=== PATIENT | male | born 1945 | race Two or more races ===

== ENCOUNTER 2017-01-26 07:02 | Outpatient (CLI) | payer OTHER | END 2017-01-26 07:10 | disposition home or self-care (01) | LOC: NUCLEAR 07:02 | DX: I50.32 Chronic diastolic (congestive) heart failure (principal); I35.1 Nonrheumatic aortic (valve) insufficiency ==

== ENCOUNTER 2018-06-12 14:07 | Emergency (ER) | payer OTHER ==
[~2018-06-12] VITALS: Ht 175.3 cm; Wt 93.0 kg
[2018-06-12] MEDS ORDERED: LOSARTAN POTASS50 MG (14:50)
[2018-06-12] MEDS ORDERED: LIPITOR40 MG (14:51)
[2018-06-12] MEDS ORDERED: ZETIA10 MG (14:51)
== END 2018-06-12 19:36 | disposition home or self-care (01) ==
LOC: ER 14:07
DX: R20.8 Other disturbances of skin sensation (principal); T78.49XA Other allergy, initial encounter; X58.XXXA Exposure to other specified factors, initial encounter

== ENCOUNTER 2022-02-10 11:03 | Outpatient (CLI) | payer OTHER ==
[~2022-02-10 11:03] MED LIST: LIPITOR40 MG; LOSARTAN POTASS50 MG; ZETIA10 MG
== END 2022-02-10 11:12 | disposition home or self-care (01) ==
LOC: LAB 11:03
PROVIDERS: ATTEND Urology
DX: R31.1 Benign essential microscopic hematuria (principal); N30.00 Acute cystitis without hematuria; R97.20 Elevated prostate specific antigen [PSA]

== ENCOUNTER → 2022-04-19 06:42 | Outpatient (CLI) | payer OTHER | END | disposition home or self-care (01) | LOC: LAB 06:42 | PROVIDERS: ATTEND Urology | DX: C64.1 Malignant neoplasm of right kidney, except renal pelvis (principal); D35.02 Benign neoplasm of left adrenal gland ==

== ENCOUNTER → 2022-04-21 12:34 | Outpatient (CLI) | payer OTHER | END | disposition home or self-care (01) | LOC: LAB 12:34 | PROVIDERS: ATTEND Urology | DX: C64.1 Malignant neoplasm of right kidney, except renal pelvis (principal); D35.02 Benign neoplasm of left adrenal gland ==

== ENCOUNTER → 2022-04-22 11:12 | Outpatient (CLI) | payer OTHER | END | disposition home or self-care (01) | LOC: LAB 11:12 | PROVIDERS: ATTEND Urology | DX: C64.1 Malignant neoplasm of right kidney, except renal pelvis (principal); D35.02 Benign neoplasm of left adrenal gland ==

== ENCOUNTER 2023-05-23 13:50 | Emergency (ER) | payer OTHER ==
[~2023-05-23] VITALS: Ht 175.3 cm; Wt 81.6 kg
[2023-05-23] MEDS ORDERED: 0.9 % SODIUM CHLORIDE 500 ML IV ONE (16:00)
[2023-05-23 16:49] LABS: HEMATOCRIT 38.9 % (39.0-48.0); HEMOGLOBIN 12.7 g/dL (13-16.00); MEAN CORPUSCULAR HEMOGLOBIN 24.1 pg (27.00-32.0); MEAN CORPUSCULAR HGB CONC 32.6 g/dl (32.0-36.0); PLATELET COUNT 200 K/uL (150-450); RED BLOOD COUNT 5.26 M/uL (4.00-6.00); RED CELL DISTRIBUTION WIDTH 16.3 % (11.5-14.5)
[2023-05-23 17:14] LABS: BILIRUBIN TOTAL 0.97 mg/dL (0.3-1.2); CALCIUM 9.2 mg/dL (8.5-10.1); CREATININE SERUM 2.52 mg/dL (0.70-1.30); GFR 24.87; GLOBULINA 3.6 G/DL (2.4-3.5); POTASSIUM 5.05 mEq/L (3.5-5.1); TOTAL PROTEIN 7.6 gm/dL (6.4-8.2)
[2023-05-23 17:20] LABS: PH,URINE 5.5 (5.0-8.0); URINE APPEARANCE Cloudy; URINE BILIRRUBIN Negative (NEGATIVE); URINE BLOOD Large; URINE COLOR Orange; URINE GLUCOSE Negative (NEGATIVE); URINE LEUKOCYTE Trace; URINE NITRATE Negative
[2023-05-23 17:27] LABS: URINE BACTERIA 212.9 uL (0.0-1933); URINE EPITHELIAL CELLS 5.7 uL (0.0-38.8); URINE WBC 34.1 uL (0.0-23.2)
[2023-05-23 17:28] LABS: URINE PROTEIN 100 (NEGATIVE)
[2023-05-23 17:29] LABS: URINE RBC > 10558.9 uL (0.0-20.8)
[2023-05-23 17:51] LABS: INR 1.02; PARTIAL THROMBOPLASTIN TIME 33.3 SECONDS (22.0-34.0); PROTHROMBIN TIME 10.7 SECONDS (9.0-11.5)
== END 2023-05-23 20:33 | disposition home or self-care (01) ==
LOC: ER 13:50
PROVIDERS: General Practice; Nurse Practitioner Family
DX: R53.81 Other malaise (principal); R31.9 Hematuria, unspecified; Z20.822 Contact with and (suspected) exposure to COVID-19
CPT/HCPCS: 36415; 71046; 93005; 96365; 96366; 99283; J7042

== ENCOUNTER 2023-05-25 14:44 | Inpatient (IN) | payer OTHER ==
[~2023-05-25] VITALS: Ht 167.6 cm; Wt 81.6 kg
[2023-05-25] MEDS ORDERED: LENVIMA4 MG PO (15:06)
[2023-05-25] MEDS ORDERED: LENVIMA PO (15:10)
[2023-05-25] MEDS ORDERED: AFINITOR5 MG PO (15:11)
[2023-05-25] MEDS ORDERED: 0.9 % SODIUM CHLORIDE 1,000 ML IV SCH ×2 (16:45→21:15)
[2023-05-25 17:21] LABS: HEMATOCRIT 39.4 % (39.0-48.0); HEMOGLOBIN 13.1 g/dL (13-16.00); MEAN CORPUSCULAR HEMOGLOBIN 24.6 pg (27.00-32.0); MEAN CORPUSCULAR HGB CONC 33.2 g/dl (32.0-36.0); PLATELET COUNT 157 K/uL (150-450); RED BLOOD COUNT 5.33 M/uL (4.00-6.00); RED CELL DISTRIBUTION WIDTH 16.4 % (11.5-14.5)
[2023-05-25 17:49] LABS: ALBUMIN 3.6 gm/dL (3.4-5.0); BILIRUBIN TOTAL 1.47 mg/dL (0.3-1.2); CALCIUM 9.1 mg/dL (8.5-10.1); CREATININE SERUM 2.37 mg/dL (0.70-1.30); GFR 26.77; GLOBULINA 3.5 G/DL (2.4-3.5); POTASSIUM 4.86 mEq/L (3.5-5.1); TOTAL PROTEIN 7.1 gm/dL (6.4-8.2)
[2023-05-25 18:03] LABS: ABG PH 7.424 (7.35-7.45); ABG PO2 87.5 mmHg (80-100); ABG pCO2 30.5 mmHg (35-45); BASE EXCESS -3.6 mmol/l; BICARBONATE 19.5 mmol/l (23-25); SaO2 96.8 %; Tco2 20.5 mmol/l
[2023-05-25 18:04] LABS: allen test SATISFACTORY; o2 21 %; puncture site RADIAL RIGHT
[2023-05-25 18:27] LABS: URINE APPEARANCE Clear; URINE BILIRRUBIN Negative (NEGATIVE); URINE BLOOD Large; URINE COLOR Yellow; URINE GLUCOSE Negative (NEGATIVE); URINE LEUKOCYTE Trace; URINE NITRATE Negative
[2023-05-25 18:31] LABS: URINE BACTERIA 42.8 uL (0.0-1933); URINE EPITHELIAL CELLS 10.5 uL (0.0-38.8); URINE RBC 2199.8 uL (0.0-20.8); URINE WBC 24.1 uL (0.0-23.2)
[2023-05-25 18:33] LABS: URINE PROTEIN 100 (NEGATIVE)
[2023-05-25] MEDS ORDERED: IPRATROPIUM BROMIDE 0.5 MG/2.5 ML AMPUL.NEB IH SCH (21:16)
[2023-05-25] MEDS ORDERED: ACETAMINOPHEN 500 MG GEL..CAP PO PRN (21:30)
[2023-05-25] MEDS ORDERED: ONDANSETRON HCL 4 MG in 0.9 % SODIUM CHLORIDE 50 ML IV PRN (21:30)
[2023-05-25 22:31] LABS: D DIMER 1.24 MG/L; INR 1.03; PROTHROMBIN TIME 10.8 SECONDS (9.0-11.5)
[2023-05-26] MEDS ORDERED: hydrALAZINE HCL 25 MG TABLET PO SCH (09:00)
[2023-05-26] MEDS ORDERED: PATIENTS OWN MEDICATION (MEDICAMENTO EN PISO) PO SCH ×3 (09:00→12:08)
[2023-05-26] MEDS ORDERED: ATORVASTATIN CALCIUM 40 MG TABLET PO SCH (09:00)
[2023-05-26] MEDS ORDERED: HYDROCORTISONE 15 MG PO SCH (09:00)
[2023-05-26] MEDS ORDERED: PANTOPRAZOLE SODIUM 40 MG/VIAL VIAL IV SCH (09:00)
[2023-05-26] MEDS ORDERED: SODIUM POLYSTYRENE SULFONATE 15 G/4 TSP TSP PO SCH (09:00)
[2023-05-26] MEDS ORDERED: AMINOCAPROIC ACID 500 MG TABLET PO SCH (09:00)
[2023-05-26] MEDS ORDERED: HYDROCORTISONE SODIUM SUCC/PF 100 MG VIAL IV STA (12:38)
[2023-05-26] MEDS ORDERED: HYDROCORTISONE SODIUM SUCC/PF 100 MG VIAL IV SCH (17:00)
[2023-05-26] MEDS ORDERED: HYDROCORTISONE 10 MG PO SCH (17:00)
[2023-05-27 05:08] LABS: HEMATOCRIT 40.7 % (39.0-48.0); HEMOGLOBIN 13.4 g/dL (13-16.00); MEAN CELL VOLUME 74.1 fL (80.0-100.00); MEAN CORPUSCULAR HEMOGLOBIN 24.4 pg (27.00-32.0); RED CELL DISTRIBUTION WIDTH 16.3 % (11.5-14.5)
[2023-05-27 05:09] LABS: PLATELET COUNT 117 K/uL (150-450)
[2023-05-27 05:14] LABS: ALBUMIN 3.4 gm/dL (3.4-5.0); BILIRUBIN TOTAL 0.87 mg/dL (0.3-1.2); CALCIUM 8.7 mg/dL (8.5-10.1); CREATININE SERUM 2.18 mg/dL (0.70-1.30); GFR 29.48; GLOBULINA 3.1 G/DL (2.4-3.5); POTASSIUM 5.37 mEq/L (3.5-5.1); TOTAL PROTEIN 6.5 gm/dL (6.4-8.2)
[2023-05-27 05:34] LABS: TSH 1.71 uIU/mL (0.358-3.74)
[2023-05-27] MEDS ORDERED: HYDROCORTISONE SODIUM SUCC/PF 100 MG VIAL IV SCH (09:00)
[2023-05-27] MEDS ORDERED: METOPROLOL TARTRATE 25 MG TABLET PO SCH (22:17)
[2023-05-28 16:12] LABS: ALBUMIN 2.8 gm/dL (3.4-5.0); CALCIUM 8.7 mg/dL (8.5-10.1); CREATININE SERUM 2.97 mg/dL (0.70-1.30); GFR 20.63; POTASSIUM 4.52 mEq/L (3.5-5.1)
[2023-05-28 17:08] LABS: PHOSPHOROUS 1.2 mg/dL (2.5-4.9)
[2023-05-29 07:47] LABS: ALBUMIN 2.9 gm/dL (3.4-5.0); BILIRUBIN TOTAL 0.52 mg/dL (0.3-1.2); CALCIUM 8.8 mg/dL (8.5-10.1); CREATININE SERUM 2.72 mg/dL (0.70-1.30); GFR 22.83; GLOBULINA 2.9 G/DL (2.4-3.5); POTASSIUM 4.27 mEq/L (3.5-5.1); TOTAL PROTEIN 5.8 gm/dL (6.4-8.2)
[2023-05-30 07:04] LABS: HEMATOCRIT 32.2 % (39.0-48.0); HEMOGLOBIN 10.7 g/dL (13-16.00); MEAN CELL VOLUME 73.2 fL (80.0-100.00); MEAN CORPUSCULAR HEMOGLOBIN 24.3 pg (27.00-32.0); MEAN CORPUSCULAR HGB CONC 33.2 g/dl (32.0-36.0)
[2023-05-30 07:15] LABS: PLATELET COUNT 98 K/uL (150-450)
[2023-05-30] MEDS ORDERED: NAPH,MB-DB/K PH,MBDB 1 PKT PACKET PO SCH (17:00)
[2023-05-31 06:35] LABS: HEMATOCRIT 32.8 % (39.0-48.0); HEMOGLOBIN 10.7 g/dL (13-16.00); MEAN CELL VOLUME 74.5 fL (80.0-100.00); MEAN CORPUSCULAR HEMOGLOBIN 24.4 pg (27.00-32.0); MEAN CORPUSCULAR HGB CONC 32.7 g/dl (32.0-36.0)
[2023-05-31 06:37] LABS: PLATELET COUNT 100 K/uL (150-450)
[2023-05-31 06:55] LABS: ALBUMIN 2.8 gm/dL (3.4-5.0); BILIRUBIN TOTAL 0.4 mg/dL (0.3-1.2); CALCIUM 8.4 mg/dL (8.5-10.1); CREATININE SERUM 2.13 mg/dL (0.70-1.30); GFR 30.12; GLOBULINA 3.1 G/DL (2.4-3.5); POTASSIUM 4.5 mEq/L (3.5-5.1); TOTAL PROTEIN 5.9 gm/dL (6.4-8.2)
[2023-05-31] MEDS ORDERED: VITAMIN B COMPLEX 1 EACH PO SCH (09:00)
[2023-05-31] MEDS ORDERED: PATIENTS OWN MEDICATION (MEDICAMENTO EN PISO) PO SCH (17:00)
[2023-06-01] MEDS ORDERED: PATIENTS OWN MEDICATION (MEDICAMENTO EN PISO) PO SCH (09:00)
[2023-06-01] MEDS ORDERED: FLUDROCORTISONE ACETATE 0.1 MG TABLET PO SCH (09:00)
== END 2023-06-01 18:52 | disposition home or self-care (01) | DRG 683 ==
LOC: ER 14:44 → SEC-K 21:50 → EDBD 21:50 → MEDJ 21:50
PROVIDERS: General Practice; Internal Medicine; Internal Medicine Endocrinology, Diabetes & Metabolism; Internal Medicine Nephrology; ADMIT Internal Medicine; ATTEND Internal Medicine
PROC: B24BZZZ Ultrasonography of Heart with Aorta (ICD-10-PCS; principal; 2023-05-25)
PROC: 4A12X4Z Monitoring of Cardiac Electrical Activity, External Approach (ICD-10-PCS; 2023-05-26)
DX: N17.9 Acute kidney failure, unspecified (principal); C64.1 Malignant neoplasm of right kidney, except renal pelvis; C78.89 Secondary malignant neoplasm of other digestive organs; E87.1 Hypo-osmolality and hyponatremia; E27.49 Other adrenocortical insufficiency; C79.72 Secondary malignant neoplasm of left adrenal gland; D63.0 Anemia in neoplastic disease; R31.0 Gross hematuria; E86.0 Dehydration; I25.10 Atherosclerotic heart disease of native coronary artery without angina pectoris; I35.1 Nonrheumatic aortic (valve) insufficiency; I13.10 Hypertensive heart and chronic kidney disease without heart failure, with stage 1 through stage 4 chronic kidney disease, or unspecified chronic kidney disease; N18.30 Chronic kidney disease, stage 3 unspecified; Z95.0 Presence of cardiac pacemaker

== ENCOUNTER 2023-10-21 12:14 | Inpatient (IN) | payer OTHER ==
[~2023-10-21] VITALS: Ht 175.3 cm; Wt 80.7 kg
[~2023-10-21 12:14] MED LIST changes: +AFINITOR5 MG PO; +LENVIMA PO; +LENVIMA4 MG PO
[2023-10-21] MEDS ORDERED: FARXIGA10 MG PO (13:23)
[2023-10-21] MEDS ORDERED: ECOTRIN81 MG (13:24)
[2023-10-21] MEDS ORDERED: IRON236 MG (13:24)
[2023-10-21] MEDS ORDERED: VALSARTAN80 MG PO (13:25)
[2023-10-21] MEDS ORDERED: SULFAMETHOXAZO1 EACH (13:25)
[2023-10-21] MEDS ORDERED: FAMOTIDINE/PF 20 MG/2 ML VIAL IV ONE (15:00)
[2023-10-21] MEDS ORDERED: 0.9 % SODIUM CHLORIDE 500 ML IV ONE ×2 (15:00→17:00)
[2023-10-21] MEDS ORDERED: ONDANSETRON HCL 2 MG/ML VIAL IV ONE (15:00)
[2023-10-21] MEDS ORDERED: FAMOTIDINE/PF 20 MG/2 ML VIAL ONE (15:14)
[2023-10-21] MEDS ORDERED: ONDANSETRON HCL 2 MG/ML VIAL ONE (15:14)
[2023-10-21] MEDS ORDERED: METHYLPREDNISOLONE SOD SUCC 125 MG VIAL ONE (15:14)
[2023-10-21] MEDS ORDERED: METHYLPREDNISOLONE SOD SUCC 125 MG VIAL IV ONE (15:15)
[2023-10-21 15:46] LABS: URINE BACTERIA 151.1 uL (0.0-1933); URINE CAST 4.88 uL (0.0-1.40); URINE EPITHELIAL CELLS 10.9 uL (0.0-38.8); URINE RBC 29.3 uL (0.0-20.8); URINE WBC 152.7 uL (0.0-23.2)
[2023-10-21 15:53] LABS: URINE APPEARANCE Turbid; URINE BILIRRUBIN Negative (NEGATIVE); URINE BLOOD Small; URINE COLOR Dark Yellow; URINE KETONE Trace (NEGATIVE); URINE LEUKOCYTE Small; URINE NITRATE Negative
[2023-10-21 16:06] LABS: URINE CRYSTALS FEW /HPF; URINE GLUCOSE >=1000 MG/DL (NEGATIVE); URINE MUCUS SCANT; URINE PROTEIN 300 (NEGATIVE)
[2023-10-21 16:07] LABS: URINE YEAST FEW /hpf
[2023-10-21 16:18] LABS: MEAN CELL VOLUME 84.4 fL (80.0-100.00); MEAN CORPUSCULAR HEMOGLOBIN 28.2 pg (27.00-32.0); MEAN CORPUSCULAR HGB CONC 33.4 g/dl (32.0-36.0); RED BLOOD COUNT 6.51 M/uL (4.00-6.00); RED CELL DISTRIBUTION WIDTH 15.3 % (11.5-14.5)
[2023-10-21 16:19] LABS: HEMATOCRIT 54.9 % (39.0-48.0); HEMOGLOBIN 18.4 g/dL (13-16.00); PLATELET COUNT 50 K/uL (150-450)
[2023-10-21] MEDS ORDERED: INSULIN LISPRO 1,000 UNIT/10 ML UNITS SUBCUTANEO PRN (19:00)
[2023-10-21] MEDS ORDERED: ACETAMINOPHEN 500 MG GEL..CAP PO PRN (19:00)
[2023-10-21] MEDS ORDERED: 0.9 % SODIUM CHLORIDE 1,000 ML IV SCH (19:00)
[2023-10-21] MEDS ORDERED: DEXTROSE 50 % IN WATER 0.5 G/ML DISP.SYRIN IV PRN (19:00)
[2023-10-21] MEDS ORDERED: ONDANSETRON HCL 4 MG in 0.9 % SODIUM CHLORIDE 50 ML IV PRN (19:00)
[2023-10-21] MEDS ORDERED: LACTOBACILLUS ACIDOPHILUS 1 CAP CAP PO SCH (19:01)
[2023-10-21] MEDS ORDERED: PREDNISONE 10 MG TABLET PO SCH (19:07)
[2023-10-21] MEDS ORDERED: MORPHINE SULFATE 2 MG/ML CARTRIDGE IV PRN (19:15)
[2023-10-21] MEDS ORDERED: hydrALAZINE HCL 20 MG VIAL IV PRN (19:15)
[2023-10-22 07:27] LABS: PH,URINE 5.5 (5.0-8.0); URINE APPEARANCE Clear; URINE BILIRRUBIN Negative (NEGATIVE); URINE BLOOD Small; URINE COLOR Yellow; URINE KETONE Trace (NEGATIVE); URINE LEUKOCYTE Trace; URINE NITRATE Negative; URINE UROBILINOGEN 0.2 E.U./dl
[2023-10-22 07:28] LABS: URINE BACTERIA 12.5 uL (0.0-1933); URINE EPITHELIAL CELLS 2.1 uL (0.0-38.8); URINE WBC 22.5 uL (0.0-23.2)
[2023-10-22 07:38] LABS: URINE CAST 0.45 uL (0.0-1.40); URINE GLUCOSE >=1000 MG/DL (NEGATIVE); URINE PROTEIN 100 (NEGATIVE); URINE RBC 0.7 uL (0.0-20.8)
[2023-10-22 07:59] LABS: INR 1.04; PROTHROMBIN TIME 10.9 SECONDS (9.0-11.5)
[2023-10-22] MEDS ORDERED: PREDNISONE 10 MG TABLET PO SCH (09:00)
[2023-10-22] MEDS ORDERED: VALSARTAN 80 MG PO SCH (09:00)
[2023-10-22] MEDS ORDERED: PANTOPRAZOLE SODIUM 40 MG in 0.9 % SODIUM CHLORIDE 8 ML IV PUSH SCH (09:00)
[2023-10-22] MEDS ORDERED: CEFTRIAXONE SODIUM 1,000 MG VIAL IV SCH (09:00)
[2023-10-22] MEDS ORDERED: FARXIGA 10 MG PO SCH (09:00)
[2023-10-22 09:33] LABS: HEMATOCRIT 48.2 % (39.0-48.0); HEMOGLOBIN 16.2 g/dL (13-16.00); MEAN CELL VOLUME 83.9 fL (80.0-100.00); MEAN CORPUSCULAR HEMOGLOBIN 28.2 pg (27.00-32.0); MEAN CORPUSCULAR HGB CONC 33.6 g/dl (32.0-36.0); RED BLOOD COUNT 5.74 M/uL (4.00-6.00); RED CELL DISTRIBUTION WIDTH 14.8 % (11.5-14.5)
[2023-10-22 09:50] LABS: ALBUMIN 3.5 gm/dL (3.4-5.0); CHOL HDL RATIO 3.4 (0-5.0); GLOBULINA 3.2 G/DL (2.4-3.5); TOTAL PROTEIN 6.7 gm/dL (6.4-8.2)
[2023-10-22 09:51] LABS: BILIRUBIN TOTAL 0.44 mg/dL (0.3-1.2); BILIRUBIN,CONJUGATED 0.12 mg/dL (0.0-0.2); BILIRUBIN,UNCONJUGATED 0.32 mg/dL (0.0-0.6)
[2023-10-22 09:55] LABS: GFR 13.61
[2023-10-22 09:56] LABS: CREATININE SERUM 4.24 mg/dL (0.70-1.30); POTASSIUM 7.99 mEq/L (3.5-5.1)
[2023-10-22 09:59] LABS: GFR 13.61; TOTAL PROTEIN 6.7 gm/dL (6.4-8.2)
[2023-10-22 10:00] LABS: ALBUMIN 3.5 gm/dL (3.4-5.0); BILIRUBIN TOTAL 0.44 mg/dL (0.3-1.2); CREATININE SERUM 4.24 mg/dL (0.70-1.30); GLOBULINA 3.2 G/DL (2.4-3.5); POTASSIUM 7.99 mEq/L (3.5-5.1)
[2023-10-22 10:12] LABS: PLATELET COUNT 28 K/uL (150-450)
[2023-10-22] MEDS ORDERED: CALCIUM GLUCONATE 100 MG/ML VIAL IV NR (10:15)
[2023-10-22 12:47] LABS: ERYTHROCYTE SEDIMENTATION RATE 14 mm/hr
[2023-10-22] MEDS ORDERED: SODIUM BICARBONATE 1 MEQ/ML DISP.SYRIN 50ML IV SCH (13:00)
[2023-10-22] MEDS ORDERED: SODIUM POLYSTYRENE SULFONATE 30G/8 TSP PO SCH ×2 (13:00)
[2023-10-22] MEDS ORDERED: DEXTROSE IV SCH (13:15)
[2023-10-22] MEDS ORDERED: SODIUM BICARBONATE IV SCH (13:15)
[2023-10-22] MEDS ORDERED: SOD CHLORD IV SCH (13:15)
[2023-10-23] MEDS ORDERED: HYDROCORTISONE SODIUM SUCC/PF 100 MG VIAL IV SCH
[2023-10-23 08:00] LABS: HEMATOCRIT 44.8 % (39.0-48.0); HEMOGLOBIN 15.7 g/dL (13-16.00); MEAN CELL VOLUME 83.7 fL (80.0-100.00); MEAN CORPUSCULAR HEMOGLOBIN 29.4 pg (27.00-32.0); MEAN CORPUSCULAR HGB CONC 35.1 g/dl (32.0-36.0); RED BLOOD COUNT 5.35 M/uL (4.00-6.00); RED CELL DISTRIBUTION WIDTH 15.4 % (11.5-14.5)
[2023-10-23 08:06] LABS: ALBUMIN 3.5 gm/dL (3.4-5.0); BILIRUBIN TOTAL 0.68 mg/dL (0.3-1.2); CALCIUM 9.3 mg/dL (8.5-10.1); CREATININE SERUM 3.31 mg/dL (0.70-1.30); GFR 18.11; GLOBULINA 2.9 G/DL (2.4-3.5); POTASSIUM 5.9 mEq/L (3.5-5.1); TOTAL PROTEIN 6.4 gm/dL (6.4-8.2)
[2023-10-23 09:57] LABS: PLATELET COUNT 40 K/uL (150-450)
[2023-10-23] MEDS ORDERED: SODIUM POLYSTYRENE SULFONATE 30G/8 TSP PO SCH ×2 (12:00→17:00)
[2023-10-23] MEDS ORDERED: HYDROCORTISONE SODIUM SUCC/PF 50 MG/ML ML IV SCH (12:00)
[2023-10-23] MEDS ORDERED: SOD CHLORD IV SCH (18:30)
[2023-10-23] MEDS ORDERED: SODIUM BICARBONATE IV SCH (18:30)
[2023-10-23] MEDS ORDERED: DEXTROSE IV SCH (18:30)
[2023-10-24] MEDS ORDERED: SODIUM BICARBONATE 50MEQ/50ML VIAL IV ONE (05:35)
[2023-10-24 06:35] LABS: HEMATOCRIT 48.7 % (39.0-48.0); HEMOGLOBIN 16.5 g/dL (13-16.00); MEAN CELL VOLUME 83.3 fL (80.0-100.00); MEAN CORPUSCULAR HEMOGLOBIN 28.2 pg (27.00-32.0); MEAN CORPUSCULAR HGB CONC 33.9 g/dl (32.0-36.0); RED BLOOD COUNT 5.85 M/uL (4.00-6.00); RED CELL DISTRIBUTION WIDTH 15.4 % (11.5-14.5)
[2023-10-24 06:49] LABS: PLATELET COUNT 36 K/uL (150-450)
[2023-10-24 06:58] LABS: CALCIUM 8.8 mg/dL (8.5-10.1); CREATININE SERUM 2.78 mg/dL (0.70-1.30); GFR 22.15; POTASSIUM 4.06 mEq/L (3.5-5.1)
[2023-10-24] MEDS ORDERED: PANTOPRAZOLE SODIUM 40 MG/VIAL VIAL ONE (07:47)
[2023-10-24] MEDS ORDERED: SODIUM CHLORIDE 0.45 % 1,000 ML IV SCH (09:15)
[2023-10-24] MEDS ORDERED: AMLODIPINE BESYLATE 5 MG TABLET PO SCH (10:31)
[2023-10-25 06:46] LABS: HEMOGLOBIN 13.9 g/dL (13-16.00); MEAN CELL VOLUME 83.3 fL (80.0-100.00); MEAN CORPUSCULAR HEMOGLOBIN 28.2 pg (27.00-32.0); MEAN CORPUSCULAR HGB CONC 33.9 g/dl (32.0-36.0); RED BLOOD COUNT 4.92 M/uL (4.00-6.00); RED CELL DISTRIBUTION WIDTH 14.8 % (11.5-14.5)
[2023-10-25 07:53] LABS: PLATELET COUNT 27 K/uL (150-450)
[2023-10-25] MEDS ORDERED: PANTOPRAZOLE SODIUM 40 MG/VIAL VIAL ONE (08:02)
[2023-10-25] MEDS ORDERED: HYDROCORTISONE SODIUM SUCC/PF 50 MG/ML ML IV SCH (17:00)
== END 2023-10-25 18:39 | disposition home or self-care (01) | DRG 813 ==
LOC: ER 12:15 → MEDI 20:27
PROVIDERS: Emergency Medicine; General Practice; Nurse Practitioner Family; ADMIT Internal Medicine; ATTEND Internal Medicine
PROC: 30233R1 Transfusion of Nonautologous Platelets into Peripheral Vein, Percutaneous Approach (ICD-10-PCS; principal; 2023-10-25)
DX: D69.6 Thrombocytopenia, unspecified (principal); N17.9 Acute kidney failure, unspecified; E87.20 Acidosis, unspecified; E27.40 Unspecified adrenocortical insufficiency; N39.0 Urinary tract infection, site not specified; I95.9 Hypotension, unspecified; E86.0 Dehydration; E87.5 Hyperkalemia; E11.65 Type 2 diabetes mellitus with hyperglycemia; Z79.4 Long term (current) use of insulin; I25.10 Atherosclerotic heart disease of native coronary artery without angina pectoris; I10 Essential (primary) hypertension

== ENCOUNTER 2023-10-29 08:19 | Inpatient (IN) | payer OTHER ==
[~2023-10-29] VITALS: Ht 175.3 cm; Wt 816.5 kg
[~2023-10-29 08:19] MED LIST changes: +ECOTRIN81 MG; +FARXIGA10 MG PO; +IRON236 MG; +SULFAMETHOXAZO1 EACH; +VALSARTAN80 MG PO
[2023-10-29 09:18] LABS: ABG PH 7.477 (7.35-7.45); ABG pCO2 29.9 mmHg (35-45); BASE EXCESS -0.7 mmol/l; BICARBONATE 21.6 mmol/l (23-25); SaO2 90.4 %; Tco2 22.5 mmol/l
[2023-10-29 09:59] LABS: HEMOGLOBIN 13.8 g/dL (13-16.00); MEAN CELL VOLUME 83.9 fL (80.0-100.00); MEAN CORPUSCULAR HEMOGLOBIN 28.2 pg (27.00-32.0); MEAN CORPUSCULAR HGB CONC 33.6 g/dl (32.0-36.0); RED BLOOD COUNT 4.89 M/uL (4.00-6.00); RED CELL DISTRIBUTION WIDTH 14.9 % (11.5-14.5)
[2023-10-29 10:15] LABS: ALBUMIN 3.5 gm/dL (3.4-5.0); BILIRUBIN TOTAL 2.74 mg/dL (0.3-1.2); CALCIUM 8.5 mg/dL (8.5-10.1); CREATININE SERUM 2.22 mg/dL (0.70-1.30); GFR 28.72; GLOBULINA 3.2 G/DL (2.4-3.5); POTASSIUM 3.67 mEq/L (3.5-5.1); TOTAL PROTEIN 6.7 gm/dL (6.4-8.2)
[2023-10-29 10:16] LABS: D DIMER 3.24 MG/L; INR 1.03; PARTIAL THROMBOPLASTIN TIME 25.7 SECONDS (22.0-34.0); PROTHROMBIN TIME 11.2 SECONDS (9.0-11.5)
[2023-10-29] MEDS ORDERED: NITROGLYCERIN IN 5 % DEXTROSE 50 MG/250 ML BOTTLE IV ONE (10:48)
[2023-10-29 10:52] LABS: ABG PO2 54.8 mmHg (80-100); allen test SATISFACTORY; o2 21 %; puncture site RADIAL LEFT
[2023-10-29] MEDS ORDERED: FUROsemide 20 MG/2 ML VIAL IV ONE (11:00)
[2023-10-29] MEDS ORDERED: NITROGLYCERIN IN 5 % DEXTROSE 250 ML IV SCH (11:00)
[2023-10-29] MEDS ORDERED: FUROsemide 40 MG/4 ML VIAL ONE (11:02)
[2023-10-29] MEDS ORDERED: FUROsemide 40 MG/4 ML VIAL IV ONE (11:15)
[2023-10-29 12:38] LABS: PLATELET COUNT 42 K/uL (150-450)
[2023-10-29 12:49] LABS: PH,URINE 6.5 (5.0-8.0); URINE APPEARANCE Clear; URINE BILIRRUBIN Negative (NEGATIVE); URINE BLOOD Trace; URINE COLOR Yellow; URINE GLUCOSE Negative (NEGATIVE); URINE KETONE Negative (NEGATIVE); URINE LEUKOCYTE Negative; URINE NITRATE Negative; URINE PROTEIN 30 (NEGATIVE); URINE UROBILINOGEN 0.2 E.U./dl
[2023-10-29 12:53] LABS: URINE BACTERIA 7.5 uL (0.0-1933); URINE WBC 3.4 uL (0.0-23.2)
[2023-10-29 12:57] LABS: PLT IN CITRATE 54 K/uL (150-450)
[2023-10-29 13:01] LABS: URINE EPITHELIAL CELLS 0.3 uL (0.0-38.8); URINE RBC 1.2 uL (0.0-20.8)
[2023-10-29] MEDS ORDERED: IPRATROPIUM BROMIDE 0.5 MG/2.5 ML AMPUL.NEB IH SCH (18:04)
[2023-10-29] MEDS ORDERED: ACETAMINOPHEN 500 MG GEL..CAP PO PRN (18:15)
[2023-10-29] MEDS ORDERED: INSULIN LISPRO 1,000 UNIT/10 ML UNITS SUBCUTANEO PRN (18:30)
[2023-10-29] MEDS ORDERED: DEXTROSE 50 % IN WATER 0.5 G/ML DISP.SYRIN IV PRN (18:30)
[2023-10-29] MEDS ORDERED: IPRATROPIUM BROMIDE 0.5 MG/2.5 ML AMPUL.NEB IH ONE ×2 (18:49→23:55)
[2023-10-30] MEDS ORDERED: FUROsemide 20 MG/2 ML VIAL IV SCH (01:00)
[2023-10-30 04:45] LABS: MAGNESIUM 1.4 mg/dL (1.8-2.4); PHOSPHOROUS 1.8 mg/dL (2.5-4.9)
[2023-10-30] MEDS ORDERED: FAMOTIDINE/PF 20 MG in 0.9 % SODIUM CHLORIDE 8 ML IV PUSH SCH (09:00)
[2023-10-30] MEDS ORDERED: PANTOPRAZOLE SODIUM 40 MG/VIAL VIAL IV SCH (09:00)
[2023-10-30] MEDS ORDERED: ATORVASTATIN CALCIUM 40 MG TABLET PO SCH (09:00)
[2023-10-30] MEDS ORDERED: POTASSIUM PHOS,M-BASIC-D-BASIC 3 MM/ML VIAL IV NR (09:23)
[2023-10-30] MEDS ORDERED: HYDROCORTISONE SODIUM SUCC/PF 100 MG VIAL IV STA (11:52)
[2023-10-30] MEDS ORDERED: HYDROCORTISONE SODIUM SUCC/PF 50 MG/ML ML IV SCH ×2 (12:00→18:00)
[2023-10-30 13:53] LABS: TSH 1.14 uIU/mL (0.358-3.74)
[2023-10-30] MEDS ORDERED: NITROGLYCERIN IN 5 % DEXTROSE 250 ML IV SCH (16:30)
[2023-10-31 06:35] LABS: HEMATOCRIT 37.2 % (39.0-48.0); HEMOGLOBIN 12.7 g/dL (13-16.00); MEAN CELL VOLUME 82.7 fL (80.0-100.00); MEAN CORPUSCULAR HEMOGLOBIN 28.1 pg (27.00-32.0); RED BLOOD COUNT 4.51 M/uL (4.00-6.00); RED CELL DISTRIBUTION WIDTH 14.9 % (11.5-14.5)
[2023-10-31 07:13] LABS: PLATELET COUNT 58 K/uL (150-450)
[2023-10-31] MEDS ORDERED: FUROsemide 20 MG/2 ML VIAL IV SCH (21:00)
[2023-11-01] MEDS ORDERED: HYDROCORTISONE SODIUM SUCC/PF 50 MG/ML ML IV SCH (01:00)
[2023-11-01 12:35] LABS: BILIRUBIN TOTAL 0.97 mg/dL (0.3-1.2); CALCIUM 8.6 mg/dL (8.5-10.1); CREATININE SERUM 2.63 mg/dL (0.70-1.30); GFR 23.62; GLOBULINA 2.9 G/DL (2.4-3.5); PHOSPHOROUS 2.4 mg/dL (2.5-4.9); POTASSIUM 3.23 mEq/L (3.5-5.1); TOTAL PROTEIN 5.9 gm/dL (6.4-8.2)
[2023-11-01 12:37] LABS: MAGNESIUM 1.4 mg/dL (1.8-2.4)
== END 2023-11-01 13:00 | disposition home or self-care (01) | DRG 281 ==
LOC: ER 08:19 → ICU 18:32 → ICU-2 18:32 → ICU 23:03
PROVIDERS: Emergency Medicine; General Practice; Internal Medicine Hematology & Oncology; ADMIT Internal Medicine; ATTEND Internal Medicine
PROC: 4A12X4Z Monitoring of Cardiac Electrical Activity, External Approach (ICD-10-PCS; principal; 2023-10-29)
PROC: B246ZZZ Ultrasonography of Right and Left Heart (ICD-10-PCS; 2023-10-29)
PROC: 3E0F7GC Introduction of Other Therapeutic Substance into Respiratory Tract, Via Natural or Artificial Opening (ICD-10-PCS; 2023-10-29)
DX: I21.A1 Myocardial infarction type 2 (principal); C64.1 Malignant neoplasm of right kidney, except renal pelvis; I13.0 Hypertensive heart and chronic kidney disease with heart failure and stage 1 through stage 4 chronic kidney disease, or unspecified chronic kidney disease; N17.9 Acute kidney failure, unspecified; I50.1 Left ventricular failure, unspecified; C79.72 Secondary malignant neoplasm of left adrenal gland; C78.89 Secondary malignant neoplasm of other digestive organs; E27.49 Other adrenocortical insufficiency; D69.6 Thrombocytopenia, unspecified; E11.22 Type 2 diabetes mellitus with diabetic chronic kidney disease; N18.32 Chronic kidney disease, stage 3b; Z95.0 Presence of cardiac pacemaker; R06.02 Shortness of breath

== ENCOUNTER 2023-11-24 13:39 | Inpatient (IN) | payer OTHER ==
[~2023-11-24] VITALS: Ht 172.7 cm; Wt 68.0 kg
[2023-11-24] MEDS ORDERED: HYDROCORTISONE20 MG PO (13:54)
[2023-11-24] MEDS ORDERED: FAMOTIDINE/PF 20 MG/2 ML VIAL IV PUSH STA (14:44)
[2023-11-24] MEDS ORDERED: ONDANSETRON HCL 2 MG/ML VIAL IV STA ×2 (14:44→22:29)
[2023-11-24] MEDS ORDERED: 0.9 % SODIUM CHLORIDE 1,000 ML IV SCH ×2 (14:45→23:15)
[2023-11-24] MEDS ORDERED: MORPHINE SULFATE 4 MG/ML VIAL IV STA (15:01)
[2023-11-24] MEDS ORDERED: FAMOTIDINE/PF 20 MG/2 ML VIAL ONE (15:31)
[2023-11-24] MEDS ORDERED: ONDANSETRON HCL 2 MG/ML VIAL ONE ×2 (15:31→22:28)
[2023-11-24 15:39] LABS: MEAN CORPUSCULAR HEMOGLOBIN 29.2 pg (27.00-32.0); MEAN CORPUSCULAR HGB CONC 33.9 g/dl (32.0-36.0); PLATELET COUNT 139 K/uL (150-450); RED CELL DISTRIBUTION WIDTH 17.6 % (11.5-14.5)
[2023-11-24 15:41] LABS: HEMATOCRIT 55.9 % (39.0-48.0)
[2023-11-24 15:56] LABS: ALBUMIN 4.2 gm/dL (3.4-5.0); BILIRUBIN TOTAL 1.54 mg/dL (0.3-1.2); CALCIUM 10.6 mg/dL (8.5-10.1); CREATININE SERUM 3.14 mg/dL (0.70-1.30); GFR 19.25; GLOBULINA 4.5 G/DL (2.4-3.5); POTASSIUM 5.42 mEq/L (3.5-5.1); TOTAL PROTEIN 8.7 gm/dL (6.4-8.2)
[2023-11-24 16:11] LABS: ABG PO2 73.5 mmHg (80-100); ABG pCO2 24.8 mmHg (35-45); BASE EXCESS -7.2 mmol/l; BICARBONATE 15.4 mmol/l (23-25); SaO2 94.4 %; Tco2 16.1 mmol/l
[2023-11-24 16:43] LABS: allen test SATISFACTORY; o2 21 %; puncture site RADIAL RIGHT
[2023-11-24] MEDS ORDERED: METHYLPREDNISOLONE SOD SUCC 125 MG VIAL ONE (19:04)
[2023-11-24] MEDS ORDERED: PROMETHAZINE HCL 25 MG/ML AMPUL IV ONE (21:45)
[2023-11-24] MEDS ORDERED: HYDROCORTISONE 15 MG PO SCH (23:05)
[2023-11-24] MEDS ORDERED: SODIUM POLYSTYRENE SULFONATE 15 G/4 TSP TSP PO SCH (23:06)
[2023-11-24] MEDS ORDERED: PANTOPRAZOLE SODIUM 40 MG/VIAL VIAL IV SCH (23:13)
[2023-11-24] MEDS ORDERED: ACETAMINOPHEN 500 MG GEL..CAP PO PRN (23:15)
[2023-11-24] MEDS ORDERED: ONDANSETRON HCL 4 MG in 0.9 % SODIUM CHLORIDE 50 ML IV PRN (23:15)
[2023-11-24] MEDS ORDERED: TAMSULOSIN HCL 0.4 MG CAP PO ONE (23:54)
[2023-11-25] MEDS ORDERED: PIPERACILLIN/TAZOBACTAM SODIUM 2.25 GM in DEXTROSE 5 % IN WATER 50 ML IV SCH
[2023-11-25] MEDS ORDERED: SODIUM POLYSTYRENE SULFONATE 15 G/4 TSP TSP ONE (00:44)
[2023-11-25 01:02] LABS: INR 1.13; PARTIAL THROMBOPLASTIN TIME 33.1 SECONDS (22.0-34.0); PROTHROMBIN TIME 12.2 SECONDS (9.0-11.5)
[2023-11-25 01:07] LABS: C-REACTIVE PROTEIN 9.01 MG/DL (0.00-0.29)
[2023-11-25 01:38] VITALS: BP 91/65; O2SAT 96
[2023-11-25 03:12] VITALS: BP 105/72; O2SAT 97
[2023-11-25 04:32] VITALS: BP 94/65; O2SAT 93
[2023-11-25 07:00] VITALS: BP 124/78; O2SAT 95
[2023-11-25 07:34] LABS: URINE APPEARANCE Cloudy; URINE BILIRRUBIN Negative (NEGATIVE); URINE BLOOD Small; URINE COLOR Yellow; URINE GLUCOSE Negative (NEGATIVE); URINE KETONE Trace (NEGATIVE); URINE LEUKOCYTE Small; URINE NITRATE Negative; URINE UROBILINOGEN 0.2 E.U./dl
[2023-11-25 07:38] LABS: URINE BACTERIA 816.4 uL (0.0-1933); URINE CAST 3.66 uL (0.0-1.40); URINE EPITHELIAL CELLS 6.8 uL (0.0-38.8); URINE RBC 41.2 uL (0.0-20.8); URINE WBC 232.8 uL (0.0-23.2)
[2023-11-25 07:41] LABS: URINE PROTEIN 300 (NEGATIVE)
[2023-11-25 08:20] LABS: URINE YEAST FEW /hpf
[2023-11-25 08:21] LABS: URINE CRYSTALS MODERATE /HPF
[2023-11-25] MEDS ORDERED: FAMOTIDINE/PF 20 MG in 0.9 % SODIUM CHLORIDE 8 ML IV PUSH SCH (09:00)
[2023-11-25] MEDS ORDERED: PATIENTS OWN MEDICATION (MEDICAMENTO EN PISO) PO SCH ×2 (11:00→17:00)
[2023-11-25] MEDS ORDERED: HYDROCORTISONE 10 MG PO SCH (17:00)
[2023-11-25] MEDS ORDERED: LACTOBACILLUS ACIDOPHILUS 1 CAP CAP PO SCH (17:00)
[2023-11-25 18:15] VITALS: BP 167/97; O2SAT 124
[2023-11-26 00:01] VITALS: BP 160/90; O2SAT 96
[2023-11-26] MEDS ORDERED: HALOPERIDOL LACTATE 5 MG/ML AMPUL ONE (02:19)
[2023-11-26 02:31] VITALS: BP 127/89; O2SAT 98
[2023-11-26] MEDS ORDERED: LORazepam 2 MG/ML VIAL ONE (02:56)
[2023-11-26] MEDS ORDERED: LORazepam 2 MG/ML VIAL IM STA (04:20)
[2023-11-26] MEDS ORDERED: HALOPERIDOL LACTATE 5 MG/ML AMPUL IV STA (04:22)
[2023-11-26 10:41] LABS: HEMATOCRIT 45.7 % (39.0-48.0); HEMOGLOBIN 15.6 g/dL (13-16.00); MEAN CELL VOLUME 84.6 fL (80.0-100.00); MEAN CORPUSCULAR HEMOGLOBIN 28.9 pg (27.00-32.0); MEAN CORPUSCULAR HGB CONC 34.1 g/dl (32.0-36.0); RED CELL DISTRIBUTION WIDTH 17.1 % (11.5-14.5)
[2023-11-26 10:43] LABS: PLATELET COUNT 82 K/uL (150-450)
[2023-11-26 11:14] LABS: ALBUMIN 3.9 gm/dL (3.4-5.0); BILIRUBIN TOTAL 1.12 mg/dL (0.3-1.2); CALCIUM 8.7 mg/dL (8.5-10.1); GFR 12.97; GLOBULINA 3.5 G/DL (2.4-3.5); POTASSIUM 5.82 mEq/L (3.5-5.1); TOTAL PROTEIN 7.4 gm/dL (6.4-8.2)
[2023-11-26 11:19] LABS: CREATININE SERUM 4.42 mg/dL (0.70-1.30)
[2023-11-26] MEDS ORDERED: HYDROCORTISONE SODIUM SUCC/PF 100 MG VIAL IV STA (12:12)
[2023-11-26 15:24] VITALS: BP 111/63; O2SAT 100
[2023-11-26] MEDS ORDERED: SODIUM POLYSTYRENE SULFONATE 15 G/4 TSP TSP PO SCH (17:00)
[2023-11-26 17:04] VITALS: BP 137/89
[2023-11-26] MEDS ORDERED: HYDROCORTISONE SODIUM SUCC/PF 100 MG VIAL ONE (20:58)
[2023-11-26] MEDS ORDERED: HYDROCORTISONE SODIUM SUCC/PF 50 MG/ML ML IV SCH (21:00)
[2023-11-27 02:57] VITALS: BP 146/74; O2SAT 95
[2023-11-27 08:51] LABS: HEMATOCRIT 43.6 % (39.0-48.0); HEMOGLOBIN 14.9 g/dL (13-16.00); MEAN CELL VOLUME 84.6 fL (80.0-100.00); MEAN CORPUSCULAR HEMOGLOBIN 28.9 pg (27.00-32.0); MEAN CORPUSCULAR HGB CONC 34.2 g/dl (32.0-36.0); RED BLOOD COUNT 5.16 M/uL (4.00-6.00); RED CELL DISTRIBUTION WIDTH 17.4 % (11.5-14.5)
[2023-11-27 08:52] LABS: PLATELET COUNT 74 K/uL (150-450)
[2023-11-27 09:46] LABS: CALCIUM 8.2 mg/dL (8.5-10.1); CREATININE SERUM 3.64 mg/dL (0.70-1.30); GFR 16.23; POTASSIUM 4.35 mEq/L (3.5-5.1)
[2023-11-27 09:53] VITALS: BP 137/87
[2023-11-27 18:50] VITALS: BP 150/83; O2SAT 94
[2023-11-28 02:06] VITALS: BP 159/84
[2023-11-28 08:58] LABS: ALBUMIN 3.1 gm/dL (3.4-5.0); BILIRUBIN TOTAL 1.11 mg/dL (0.3-1.2); CREATININE SERUM 2.87 mg/dL (0.70-1.30); GFR 21.35; GLOBULINA 2.7 G/DL (2.4-3.5); POTASSIUM 3.65 mEq/L (3.5-5.1); TOTAL PROTEIN 5.8 gm/dL (6.4-8.2)
[2023-11-28 09:00] VITALS: BP 144/84
[2023-11-29] MEDS ORDERED: FLUDROCORTISONE ACETATE 0.1 MG TABLET PO SCH (09:00)
== END 2023-11-28 14:19 | disposition home or self-care (01) | DRG 871 ==
LOC: ER 13:41 → ICU-2 23:11 → MEDJ 11-26 16:34
PROVIDERS: Emergency Medicine; General Practice; Internal Medicine Nephrology; ADMIT Internal Medicine; ATTEND Internal Medicine
PROC: BW21ZZZ Computerized Tomography (CT Scan) of Abdomen and Pelvis (ICD-10-PCS; principal; 2023-11-24)
DX: A41.9 Sepsis, unspecified organism (principal); G93.41 Metabolic encephalopathy; N39.0 Urinary tract infection, site not specified; N17.9 Acute kidney failure, unspecified; E27.2 Addisonian crisis; N18.4 Chronic kidney disease, stage 4 (severe); C64.9 Malignant neoplasm of unspecified kidney, except renal pelvis; B96.4 Proteus (mirabilis) (morganii) as the cause of diseases classified elsewhere; B96.5 Pseudomonas (aeruginosa) (mallei) (pseudomallei) as the cause of diseases classified elsewhere; E86.0 Dehydration; I12.9 Hypertensive chronic kidney disease with stage 1 through stage 4 chronic kidney disease, or unspecified chronic kidney disease; E11.22 Type 2 diabetes mellitus with diabetic chronic kidney disease; Z79.4 Long term (current) use of insulin; D69.6 Thrombocytopenia, unspecified; R41.82 Altered mental status, unspecified; I25.10 Atherosclerotic heart disease of native coronary artery without angina pectoris; Z95.0 Presence of cardiac pacemaker

== ENCOUNTER 2024-02-21 13:11 | Inpatient (IN) | payer OTHER ==
[~2024-02-21] VITALS: Ht 175.3 cm; Wt 74.4 kg
[~2024-02-21 13:11] MED LIST changes: +HYDROCORTISONE20 MG PO
--- NOTE | 2024-02-21 13:36 | NUR ---
SE RECIBE PACIENTE ALERTA Y ORIENTADO X3 REFIEREN VENIR POR MAREOS Y VOMITOS X2 DESDE ESTA MANANA. PACIENTE ES REFERIDO POR WELCH ENDOCRINOLAGA DAVID.HARRIS POR HX DE ACUTE ADRENAL CRISIS E INTOLERANCIA DE LIQUIDOS Y SOLIDOS POR BOCA.
[2024-02-21] MEDS ORDERED: FLUDROCORTISON0.1 MG PO (13:40)
[2024-02-21] MEDS ORDERED: HYDROCORTISONE5 MG PO (13:41)
[2024-02-21] MEDS ORDERED: HYDROCORTISONE10 MG PO (13:42)
[2024-02-21] MEDS ORDERED: LIPITOR40 M1 PO (13:43)
[2024-02-21] MEDS ORDERED: FAMOTIDINE/PF 20 MG in 0.9 % SODIUM CHLORIDE 8 ML IV PUSH STA (14:10)
[2024-02-21] MEDS ORDERED: HYDROCORTISONE SODIUM SUCC/PF 100 MG VIAL IV SCH (14:14)
[2024-02-21] MEDS ORDERED: 0.9 % SODIUM CHLORIDE 1,000 ML IV SCH ×2 (14:15→19:15)
[2024-02-21] MEDS ORDERED: ONDANSETRON HCL 2 MG/ML VIAL IV ONE (14:15)
--- NOTE | 2024-02-21 14:43 | NUR ---
PTE ALERTA Y ORIENTADO X3 RN DOUGLASS LE ORIENTA SOBRE TX MEDICO LO CUAL REFIERE ENTENDER Y ACEPTAR SE LE REALIZAN MUESTRAS DE LAB BAJO MEDIDAS ASEPTICAS Y SE LEADMINISTRA MEDICAMENTOS LATRICE ORDEN MEDICA
[2024-02-21 14:56] LABS: HEMATOCRIT 51.5 % (39.0-48.0); HEMOGLOBIN 17.2 g/dL (13-16.00); MEAN CELL VOLUME 83.6 fL (80.0-100.00); MEAN CORPUSCULAR HEMOGLOBIN 27.9 pg (27.00-32.0); MEAN CORPUSCULAR HGB CONC 33.4 g/dl (32.0-36.0); RED BLOOD COUNT 6.16 M/uL (4.00-6.00); RED CELL DISTRIBUTION WIDTH 14.8 % (11.5-14.5)
[2024-02-21 15:03] LABS: PLATELET COUNT 128 K/uL (150-450)
[2024-02-21 15:21] LABS: ALBUMIN 3.6 gm/dL (3.4-5.0); BILIRUBIN TOTAL 0.91 mg/dL (0.3-1.2); CALCIUM 9.6 mg/dL (8.5-10.1); CREATININE SERUM 2.3 mg/dL (0.70-1.30); GFR 27.57; GLOBULINA 3.8 G/DL (2.4-3.5); TOTAL PROTEIN 7.4 gm/dL (6.4-8.2)
[2024-02-21 15:28] LABS: POTASSIUM 6.24 mEq/L (3.5-5.1)
[2024-02-21 16:34] LABS: ALBUMIN 3.6 gm/dL (3.4-5.0); BILIRUBIN TOTAL 0.78 mg/dL (0.3-1.2); CALCIUM 9.2 mg/dL (8.5-10.1); CREATININE SERUM 2.26 mg/dL (0.70-1.30); GFR 28.13; GLOBULINA 3.5 G/DL (2.4-3.5); TOTAL PROTEIN 7.1 gm/dL (6.4-8.2)
[2024-02-21 16:47] LABS: POTASSIUM 6.7 mEq/L (3.5-5.1)
[2024-02-21] MEDS ORDERED: CALCIUM GLUCONATE 100 MG/ML VIAL IV ONE (17:15)
[2024-02-21] MEDS ORDERED: ALBUTEROL SULFATE 0.5 ML/2.5 MG SOLUTION IH ONE (17:15)
[2024-02-21] MEDS ORDERED: DEXTROSE 50 % IN WATER 0.5 G/ML VIAL IV ONE (17:15)
[2024-02-21] MEDS ORDERED: FUROsemide 20 MG/2 ML VIAL IV ONE (17:15)
[2024-02-21] MEDS ORDERED: INSULIN REGULAR, HUMAN 1,000 UNIT/10 ML UNITS IV ONE (17:15)
--- NOTE | 2024-02-21 18:21 | NUR ---
SE ADMINISTRAN MEDICAMENTOS LATRICE ORDEN MEDICA Y BAJO MEDIDAS ASEPTICAS.
[2024-02-21] MEDS ORDERED: SODIUM POLYSTYRENE SULFONATE 15 G/4 TSP TSP PO SCH (19:02)
[2024-02-21] MEDS ORDERED: ACETAMINOPHEN 500 MG GEL..CAP PO PRN (19:15)
[2024-02-21 20:45] LABS: D DIMER 3.75 MG/L; INR 1.04; PARTIAL THROMBOPLASTIN TIME 27.3 SECONDS (22.0-34.0); PROTHROMBIN TIME 11.3 SECONDS (9.0-11.5)
[2024-02-21 20:51] VITALS: BP 121/79; O2SAT 95
[2024-02-21 21:33] LABS: URINE APPEARANCE Clear; URINE BILIRRUBIN Negative (NEGATIVE); URINE BLOOD Negative; URINE COLOR Yellow; URINE KETONE Negative (NEGATIVE); URINE LEUKOCYTE Negative; URINE NITRATE Negative; URINE PROTEIN 30 (NEGATIVE); URINE UROBILINOGEN 0.2 E.U./dl
[2024-02-21 21:37] LABS: URINE BACTERIA 9.7 uL (0.0-1933)
[2024-02-21 21:45] LABS: URINE CAST 0.44 uL (0.0-1.40); URINE EPITHELIAL CELLS 0.9 uL (0.0-38.8); URINE GLUCOSE 250 MG/DL (NEGATIVE); URINE RBC 0.4 uL (0.0-20.8); URINE WBC 1.1 uL (0.0-23.2)
[2024-02-21 23:00] VITALS: BP 130/80; O2SAT 97
[2024-02-22 08:07] VITALS: BP 136/88; O2SAT 98
[2024-02-22] MEDS ORDERED: SODIUM POLYSTYRENE SULFONATE 15 G/4 TSP TSP PO SCH (09:00)
[2024-02-22] MEDS ORDERED: ENOXAPARIN SODIUM 40 MG/0.4 ML SYRINGE SUBCUTANEO SCH (09:00)
[2024-02-22] MEDS ORDERED: ATORVASTATIN CALCIUM 40 MG TABLET PO SCH (09:00)
[2024-02-22] MEDS ORDERED: FAMOTIDINE/PF 20 MG in 0.9 % SODIUM CHLORIDE 8 ML IV PUSH SCH (09:00)
[2024-02-22] MEDS ORDERED: IRON FUM,PS/FOLIC/BCOMP,C NO.9 1 CAP CAPSULE PO SCH (09:00)
[2024-02-22 10:25] VITALS: BP 122/66; O2SAT 99
[2024-02-22] MEDS ORDERED: HYDROCORTISONE SODIUM SUCC/PF 50 MG/ML ML IV SCH (12:00)
[2024-02-22 16:09] VITALS: BP 148/72; O2SAT 99
[2024-02-22 17:15] VITALS: BP 133/81; O2SAT 97
[2024-02-22 17:32] VITALS: O2SAT 98
[2024-02-22 19:30] VITALS: O2SAT 98
[2024-02-23] VITALS (10 sets, daily range): BP systolic 97–152; BP diastolic 59–95; O2SAT 97–100
[2024-02-23 06:38] LABS: HEMATOCRIT 44.9 % (39.0-48.0); HEMOGLOBIN 15.2 g/dL (13-16.00); MEAN CELL VOLUME 82.1 fL (80.0-100.00); MEAN CORPUSCULAR HEMOGLOBIN 27.8 pg (27.00-32.0); MEAN CORPUSCULAR HGB CONC 33.9 g/dl (32.0-36.0); RED BLOOD COUNT 5.47 M/uL (4.00-6.00)
[2024-02-23 06:40] LABS: BILIRUBIN TOTAL 0.57 mg/dL (0.3-1.2); CALCIUM 8.5 mg/dL (8.5-10.1); CREATININE SERUM 2.03 mg/dL (0.70-1.30); GFR 31.84; GLOBULINA 2.5 G/DL (2.4-3.5); POTASSIUM 3.99 mEq/L (3.5-5.1); TOTAL PROTEIN 5.5 gm/dL (6.4-8.2)
[2024-02-23 07:14] LABS: PLATELET COUNT 125 K/uL (150-450)
[2024-02-24 00:41] VITALS: BP 147/86; O2SAT 98
[2024-02-24 01:00] VITALS: O2SAT 100
[2024-02-24 05:00] VITALS: O2SAT 100
[2024-02-24 05:46] LABS: ALBUMIN 2.9 gm/dL (3.4-5.0); CALCIUM 8.5 mg/dL (8.5-10.1); CREATININE SERUM 1.89 mg/dL (0.70-1.30); GFR 34.58; POTASSIUM 5.12 mEq/L (3.5-5.1)
[2024-02-24] MEDS ORDERED: CALCIUM GLUCONATE 100 MG/ML VIAL IV ONE (06:45)
[2024-02-24 08:26] VITALS: BP 141/74; O2SAT 95
[2024-02-24 09:27] VITALS: O2SAT 100
[2024-02-24 12:37] VITALS: O2SAT 98
[2024-02-24] MEDS ORDERED: SODIUM POLYSTYRENE SULFONATE 30G/8 TSP PO SCH (13:00)
[2024-02-24] MEDS ORDERED: SODIUM POLYSTYRENE SULFONATE 15 G/4 TSP TSP PO SCH (13:00)
[2024-02-24] MEDS ORDERED: HYDROCORTISONE SODIUM SUCC/PF 50 MG/ML ML IV SCH (17:00)
== END 2024-02-24 18:58 | disposition home or self-care (01) | DRG 644 ==
LOC: ER 13:13 → SEC-K 20:44 → EDBD 20:44 → MEDI 02-22 02:41 → SEC-K 02-22 02:50 → MEDI 02-22 15:59
PROVIDERS: General Practice; ADMIT Internal Medicine; ATTEND Internal Medicine
PROC: 4A12X4Z Monitoring of Cardiac Electrical Activity, External Approach (ICD-10-PCS; principal; 2024-02-22)
DX: E27.2 Addisonian crisis (principal); C64.9 Malignant neoplasm of unspecified kidney, except renal pelvis; N17.8 Other acute kidney failure; E27.49 Other adrenocortical insufficiency; D69.6 Thrombocytopenia, unspecified; I12.9 Hypertensive chronic kidney disease with stage 1 through stage 4 chronic kidney disease, or unspecified chronic kidney disease; E87.5 Hyperkalemia; E86.0 Dehydration; Z95.0 Presence of cardiac pacemaker